=== PATIENT | male | born 1995 | race Caucasian/White ===

== ENCOUNTER 2017-12-04 19:39 | Emergency (ER) | payer OTHER, MEDICAID | END 2017-12-04 20:57 | disposition home or self-care (01) | LOC: FTE 19:39 → E/R 20:57 | DX: M54.2 Cervicalgia (principal) | CPT/HCPCS: 70360; 72040; 99284-25 ==

== ENCOUNTER 2018-09-15 18:36 | Emergency (ER) | payer OTHER | END 2018-09-15 20:52 | disposition home or self-care (01) | LOC: FTE 18:36 | DX: R21 Rash and other nonspecific skin eruption (principal); F17.210 Nicotine dependence, cigarettes, uncomplicated | CPT/HCPCS: 99282; Z7502 ==